=== PATIENT | female | born 1955 | race Caucasian/White ===

== ENCOUNTER 2025-05-08 07:19 | Emergency (ER) | payer MEDICARE, OTHER ==
[2025-05-08 08:03] LABS: BASOPHILS ABSOLUTE AUTO 0.08 K/uL (0.00-0.10); BASOPHILS PERCENT AUTO 0.6 % (0.1-1.3); EOSINOPHILS ABSOLUTE AUTO 0.07 K/uL (0.00-0.40); EOSINOPHILS PERCENT AUTO 0.5 % (0.0-5.4); IMMATURE GRAN ABSOLUTE AUTO 0.05 K/uL (0.00-0.23); IMMATURE GRAN PERCENT AUTO 0.4 % (0.0-0.7); LYMPHOCYTES ABSOLUTE AUTO 1.92 K/uL (0.8-3.3); LYMPHOCYTES PERCENT AUTO 14.3 % (11.4-47.7); MONOCYTES ABSOLUTE AUTO 0.66 K/uL (0.20-0.90); MONOCYTES PERCENT AUTO 4.9 % (3.3-12.6); NEUTROPHILS ABSOLUTE AUTO 10.60 K/uL (1.0-7.6); NEUTROPHILS PERCENT AUTO 79.3 % (40.0-78.1); PLATELET COUNT,PLT 371 K/uL (130-375); RED BLOOD CELL COUNT 4.51 M/uL (3.77-5.24); WHITE BLOOD CELL COUNT,WBC 13.4 K/uL (3.2-11.0)
[2025-05-08] MEDS: Ketorolac 15 MG/ML SDV IVPUSH ONE (08:03)
[2025-05-08 08:27] LABS: A/G RATIO 1.1 (1.2-2.2); ALANINE AMINOTRANSFERASE,ALT 22 U/L (12-78); ASPARTATE AMNIOTRANSFERASE,AST 14 U/L (15-37); BILIRUBIN TOTAL 0.5 mg/dL (0.2-1.0); BLOOD UREA NITROGEN,BUN 24 mg/dL (7-18); CARBON DIOXIDE,CO2 29 mmol/L (21-32); CHLORIDE,CL 101 mmol/L (100-108); CREATINE KINASE,CK 37 U/L (26-192); CREATININE 0.8 mg/dL (0.6-1.0); EST CRCL DRUG DOSING (CG) 64.10 mL/min; ESTIMATED GFR 81 mL/min (>60); GLUCOSE RANDOM 120 mg/dL (74-106); POTASSIUM,K 4.1 mmol/L (3.6-5.2); PROTEIN TOTAL,TP 8.1 g/dL (6.4-8.2); SODIUM,NA 137 mmol/L (140-148)
[2025-05-08 09:29] LABS: APPEARANCE,URINE CLEAR (CLEAR); GLUCOSE,URINE NEGATIVE (NEGATIVE); OCCULT BLOOD,URINE NEGATIVE (NEGATIVE)
[2025-05-08 09:38] LABS: EPITHELIAL CELLS,URINE RARE
== END 2025-05-08 10:17 | disposition home or self-care (01) ==
LOC: JP.ED 07:19
DX: M62.830 Muscle spasm of back (principal); N39.0 Urinary tract infection, site not specified; Z79.899 Other long term (current) drug therapy; Z90.49 Acquired absence of other specified parts of digestive tract
CPT/HCPCS: 36415; 80053; 81001; 82550; 85025; 96361; 96374; 96375; 99283; J1885; J3360; J7040; J1171